=== PATIENT | female | born 1980 | race Caucasian/White ===

== ENCOUNTER 2017-09-18 18:43 | Emergency (ER) | payer OTHER ==
[~2017-09-18] VITALS: Ht 157.5 cm; Wt 74.4 kg
[~2017-09-18 18:43] MED LIST: CIPROFLOXACIN500 MG PO; DILAUDID2 MG PO; FLOMAX(MONOGRA0.4 MG PO; IBUPROFEN800 M1 PO; PERCOCET 325 MG1 TA2 PO; PERCOCET 5-3251 EACH PO; PHENERGAN25 M1 PO; ROBAFEN DM 10120 ML PO; TRIAMCINOL0.1 %/453 TOP; ZOFRAN 4 MG TABL4 MG PO; ZOFRAN ODT4 M1 SL; ZOFRAN ODT4 MG PO; [UNRECOGNIZED DRUG - OTHER] PO
[2017-09-18 19:10] VITALS: BP 135/97
--- NOTE | 2017-09-18 19:44 | ED GI/GU/ABDOMINAL COMPLAINT ---
History of Present Illness General Chief Complaint: Low Back Pain/Injury Stated Complaint: ?KIDNEY STONE Source: patient Exam Limitations: no limitations Vital Signs & Intake/Output Vital Signs & Intake/Output Vital Signs Date Time Temp Pulse Resp B/P B/P Pulse O2 O2 Flow FiO2 Mean Ox Delivery Rate 09/18 2007 97 09/18 1910 98.3 120 16 135/97 99 Room Air Room Air Allergies Coded Allergies: hydromorphone (Severe, DYSPNEA 01/03/16) amoxicillin (From Augmentin) (Intermediate, HIVES 12/08/15) clavulanic acid (From Augmentin) (Intermediate, HIVES 12/08/15) ketorolac (Intermediate, HIVES, HEADACHE 12/08/15) Penicillins (HIVES 01/03/16) adhesive tape (WELTS 01/03/16) black pepper (IF ENOUGH CONSUMED ANAPHYLAXIS, EYES AND NOSE ITCH, HIVES 01/03/16 ) codeine (HIVES 01/03/16) hydrocodone (HIVES 01/03/16) tramadol ("NASTY HEADACHE" 01/03/16) Uncoded Allergies: TIDE LAUNDRY DETERGENT (HIVES 01/03/16) Reconcile Medications Ciprofloxacin HCl (Cipro) 500 MG TABLET 1 TAB PO BID uti Ibuprofen 800 MG TABLET 1 TAB PO TID pain Ibuprofen 800 MG TABLET 1 TAB PO TID PRN headache Oxycodone HCl/Acetaminophen (Percocet 5-325 MG Tablet) 5 MG-325 MG TABLET 1-2 TAB PO BID pain Tamsulosin HCl (Flomax) 0.4 MG CAP.ER.24H 1 CAP PO DAILY kidney stone Triage Note: PT TO TRIAGE WITH LEFT FLANK PAIN TO BACK PAIN RADITATING TO HER GROIN. "IT IS THE KIDNEY STONE THAT I HAVE HAD FOR 2 YEARS." DENIES TROUBLRE WITH URINATION Triage Nurses Notes Reviewed? yes ? n Is pt currently ? No Onset: Abrupt Duration: hour(s): ( 3pm), constant Timing: recent history Quality/Severity: moderate, sharpness Location: left flank Radiation: LLQ, LUQ Activities at Onset: none Prior Abdominal Problems: none No Modifying Factors: none HPI: 36-year-old female comes into the emergency room complaints of left flank pain wrapping around her abdomen that began around 3 PM this afternoon. Pain is sharp. Continuous. Wraps around. No vomiting. History of kidney stones. Feels like previous kidney stones. Denies any other associated symptoms at this time. Past History Travel History Traveled to [place] past 21 day No Medical History Any Pertinent Medical History? see below for history Neurological: NONE EENT: NONE Cardiovascular: NONE Respiratory: asthma Gastrointestinal: fatty liver disease Renal: nephrolithiasis, KIDNEY INFECTIONS Musculoskeletal: NONE Psychiatric: depression Endocrine: NONE Blood Disorders: NONE Cancer(s): NONE GROUNDS CLEANER/Reproductive: NONE Surgical History Surgical History: appendectomy, hysterectomy, URETERAL STENTS, PARTIAL HYSTERECTOMY, TUBAL LIGATION, APPENDECTOMY Psychosocial History Who do you live with Family Services at Home None What is your primary language Telugu Tobacco Use: Current Daily Use Daily Tobacco Use Amount/Type: => 5 Cigarettes daily ETOH Use: denies use Illicit Drug Use: denies illicit drug use Family History Hx Contributory? No Review of Systems Review of Systems Constitutional: Reports: no symptoms. EENTM: Reports: no symptoms. Respiratory: Reports: no symptoms. Cardiovascular: Reports: no symptoms. GI: Reports: see HPI. Genitourinary: Reports: see HPI. Musculoskeletal: Reports: no symptoms. Skin: Reports: no symptoms. Neurological/Psychological: Reports: no symptoms. Hematologic/Endocrine: Reports: no symptoms. Immunologic/Allergic: Reports: no symptoms. All Other Systems: Reviewed and Negative Physical Exam Physical Exam General Appearance: well developed/nourished, alert, awake, mild distress Head: atraumatic, normal appearance Eyes: Bilateral: normal appearance. Ears, Nose, Throat, Mouth: hearing grossly normal, moist mucous membrane Neck: normal inspection Respiratory: normal breath sounds, no respiratory distress Cardiovascular: regular rate/rhythm Gastrointestinal: soft, tenderness Back: CVA tenderness (L) Extremities: normal range of motion Neurologic/Psych: awake, alert, oriented x 3, normal gait Core Measures ACS in differential dx? No Sepsis Present: No Sepsis Focused Exam Completed? No Progress Differential Diagnosis: appendicitis, biliary colic, bowel obstruction, cholecystitis, diverticulitis, ischemic bowel, inflamm bowel dis, kidney stone, ovarian cyst, ovarian torsion, SBO, UTI/pyelo Plan of Care: Orders Procedure Date/time Status COMPREHENSIVE METABOLIC PANEL 09/18 1941 Complete CBC WITHOUT DIFFERENTIAL 09/18 1941 Complete URINALYSIS 09/18 1909 Complete Laboratory Tests 09/18/171951: Anion Gap 14, Estimated GFR > 60, BUN/Creatinine Ratio 11.0, Glucose 109 H, Calcium 9.6, Total Bilirubin 0.3, AST 13 L, ALT 29, Alkaline Phosphatase 81, Total Protein 6.9, Albumin 4.4, Globulin 2.5, Albumin/Globulin Ratio 1.8, CBC w Diff NO MAN DIFF REQ, RBC 4.75, MCV 92.2, MCH 31.3 H, MCHC 34.0, RDW 13.3, MPV 8.7, Gran % 70.7, Lymphocytes % 20.7, Monocytes % 7.3, Eosinophils % 0.9, Basophils % 0.4, Absolute Granulocytes 11.0 H, Absolute Lymphocytes 3.2, Absolute Monocytes 1.1 H, Absolute Eosinophils 0.1, Absolute Basophils 0.1 09/18/171916: Urinalysis MANY H, Urine Color BROWN H, Urine Clarity HAZY H, Urine pH 7.0, Ur Specific [place] 1.025, Urine Protein >=300 H, Urine Ketones 15 H, Urine Nitrite POS H, Urine Bilirubin NEG, Urine Urobilinogen 2.0 H, Ur Leukocyte Esterase TRACE H, Ur Microscopic SEDIMENT EXAMINED, Urine RBC >75 H, Urine WBC 10-15 H, Ur Epithelial Cells MOD H, Urine Bacteria MOD H, Urine Hemoglobin LARGE H, Urine Glucose NEG Diagnostic Imaging: Viewed by Me: CT Scan. Discussed w/RAD: CT Scan. Radiology Impression: PATIENT: ROSARIO FLETCHER PRESENT AGE: 36 PATIENT ACCOUNT NO: [id number] : 79 LOCATION: [facility] ORDERING PHYSICIAN: Skyler BOSS SERVICE DATE: 09/18/17 EXAM TYPE: CAT - CT ABD & PELVIS W/O IV CONTRAS EXAMINATION: CT ABDOMEN AND PELVIS WITHOUT CONTRAST CLINICAL INFORMATION: Left flank pain. COMPARISON: CT scan abdomen pelvis 12/08/2015. Ultrasound abdomen 02/16/2018 TECHNIQUE: Multidetector volumetric imaging was performed from the superior aspect of the liver through the pubic symphysis. Sagittal and coronal reformatted images were obtained on the technologist's workstation. DLP: 496.11 mGy-cm FINDINGS: LUNG BASES: The visualized lung bases are unremarkable. LIVER, GALLBLADDER, AND BILIARY TREE: The liver is normal in size, shape, and attenuation. No focal hepatic lesion or biliary ductal dilatation is present. There are a few tiny densities layering dependently in the gallbladder likely from small gallstones. No edema around the gallbladder. No bile duct dilatation. PANCREAS: Unremarkable. SPLEEN: Unremarkable. ADRENAL GLANDS: Unremarkable. BLADDER/KIDNEYS AND URETERS: Moderate hydronephrosis of left kidney with distention of renal pelvis calyces and the left ureter to the ureterovesical junction. No stone is seen in the kidney or ureter. The 2 calcifications, one on image 609 (3) and the other on image 639, are not within the ureter, there are phleboliths or vascular calcifications. These were both present on the CAT scan of 04/08/2016. The etiology for the hydronephrosis is uncertain. There is no bladder calculus. Right kidney and ureter are normal. There are 3 less than 1 mm size stones in the left kidney. No stone in the right kidney. GASTROINTESTINAL TRACT: Status post appendectomy with surgical clips adjacent to the cecum. No acute change of the bowel. No bowel obstruction. No bowel wall thickening or edema. Large volume of stool in the colon. ABDOMINAL WALL: No significant hernia is appreciated. LYMPH NODES: Normal. VASCULAR: Unremarkable. PELVIC VISCERA: Uterus is absent. No adnexal abnormality. OSSEOUS STRUCTURES: Unremarkable. IMPRESSION: 1. Hydronephrosis of left kidney with hydroureter to the ureterovesical junction. There are several nonobstructive stones in the left kidney. No stone identified in the left ureter or bladder. 2. Cholelithiasis. No bile duct dilatation. DICTATED BY: Orlando Gardiner MD DATE/TIME DICTATED:09/18/172047 WORK FORCE ADVISOR :CONNOR DATE/TIME TRANSCRIBED:09/18/172047 CONFIDENTIAL, DO NOT COPY WITHOUT APPROPRIATE AUTHORIZATION. <Electronically signed in Other Vendor System> SIGNED BY: Orlando Gardiner MD 09/18/172100 Initial ED EKG: none Departure Departure Disposition: HOME OR SELF CARE Condition: Stable Clinical Impression Primary Impression: Kidney stones Referrals: Unknown (PCP/Family) Additional Instructions: Take Percocet and Flomax as prescribed. Take ibuprofen as prescribed. Follow- up with urologist. Return if any other concerns. Please go over all results of today's visit with your primary care doctor. Contact your primary care doctor to let them know you were here in the emergency room. There may be nonspecific findings which may not be related to your visit today here in the emergency room but may require further evaluation and chronic monitoring by your primary care doctor. If you had a laceration today the chance of foreign body always remains. You should follow-up with your primary care doctor for recheck in 3-5 days for a wound check. If you had an x-ray done there is a chance that a fracture could have been missed on initial read and you should follow-up with your primary care doctor for repeat x-rays if symptoms persist. If your blood pressure was elevated here in the emergency room please have rechecked by erin primary care doctor within the next 48. If you were prescribed a narcotic here in the emergency room or any type of controlled substances you're not allowed to drive while taking this medication or operate any type of heavy machinery. Narcotics can make you feel lightheaded dizziness nausea and can cause constipation. You may need to picker machine operator a stool softener. Thank you for choosing [facility] emergency room. Please return to the emergency room immediately if you have any other concerns worsening of symptoms. Departure Forms: Customer Survey General Discharge Information Prescriptions: Current Visit Scripts Oxycodone HCl/Acetaminophen (Percocet 5-325 MG Tablet) 1-2 TAB PO BID #10 TAB Tamsulosin HCl (Flomax) 1 CAP PO DAILY #7 CAP Ibuprofen 1 TAB PO TID #30 TAB Ciprofloxacin HCl (Cipro) 1 TAB PO BID #6 TAB Comments 09/18/2017 9:32:08 PM Patient clinically looks well. Patient is no apparent distress. Patient is nontoxic-appearing. Pain is controlled with IV medication. She feels better. Follow-up with urologist. She already has a urologist. Return if any other concerns. Patient understands and agrees a plan of care. Reevaluated multiple times.
[2017-09-18 20:07] LABS: ABSOLUTE BASOPHIL COUNT 0.1 /CUMM (0.0-0.2); ABSOLUTE EOSINOPHIL COUNT 0.1 /CUMM (0.0-0.7); ABSOLUTE LYMPH COUNT 3.2 /CUMM (1.2-3.4); ABSOLUTE MONOCYTE COUNT 1.1 /CUMM (0.10-0.60); BASOPHIL % 0.4 % (0.0-2.0); EOSINOPHIL % 0.9 % (0-5); GRANULOCYTE % 70.7 % (42.2-75.2); HEMATOCRIT 43.8 % (37-47); MEAN CORPUSCULAR HGB 31.3 PG (27.0-31.0); MEAN CORPUSCULAR VOLUME 92.2 FL (81.0-99.0); MEAN PLATELET VOLUME 8.7 FL (7.4-10.4); PLATELET COUNT 308 /CUMM (130-400); RBC DISTRIBUTION WIDTH 13.3 % (11.5-14.5); RED BLOOD CELL CT 4.75 /CUMM (4.20-5.40); WHITE BLOOD CELL COUNT 15.5 /CUMM (4.8-10.8)
--- NOTE | 2017-09-18 21:01 | CT SCAN REPORT ---
EXAMINATION: CT ABDOMEN AND PELVIS WITHOUT CONTRAST CLINICAL INFORMATION: Left flank pain. COMPARISON: CT scan abdomen pelvis 12/08/2015. Ultrasound abdomen 02/16/2018 TECHNIQUE: Multidetector volumetric imaging was performed from the superior aspect of the liver through the pubic symphysis. Sagittal and coronal reformatted images were obtained on the technologist's workstation. DLP: 496.11 mGy-cm FINDINGS: LUNG BASES: The visualized lung bases are unremarkable. LIVER, GALLBLADDER, AND BILIARY TREE: The liver is normal in size, shape, and attenuation. No focal hepatic lesion or biliary ductal dilatation is present. There are a few tiny densities layering dependently in the gallbladder likely from small gallstones. No edema around the gallbladder. No bile duct dilatation. PANCREAS: Unremarkable. SPLEEN: Unremarkable. ADRENAL GLANDS: Unremarkable. BLADDER/KIDNEYS AND URETERS: Moderate hydronephrosis of left kidney with distention of renal pelvis calyces and the left ureter to the ureterovesical junction. No stone is seen in the kidney or ureter. The 2 calcifications, one on image 609 (3) and the other on image 639, are not within the ureter, there are phleboliths or vascular calcifications. These were both present on the CAT scan of 04/08/2016. The etiology for the hydronephrosis is uncertain. There is no bladder calculus. Right kidney and ureter are normal. There are 3 less than 1 mm size stones in the left kidney. No stone in the right kidney. GASTROINTESTINAL TRACT: Status post appendectomy with surgical clips adjacent to the cecum. No acute change of the bowel. No bowel obstruction. No bowel wall thickening or edema. Large volume of stool in the colon. ABDOMINAL WALL: No significant hernia is appreciated. LYMPH NODES: Normal. VASCULAR: Unremarkable. PELVIC VISCERA: Uterus is absent. No adnexal abnormality. OSSEOUS STRUCTURES: Unremarkable. IMPRESSION: 1. Hydronephrosis of left kidney with hydroureter to the ureterovesical junction. There are several nonobstructive stones in the left kidney. No stone identified in the left ureter or bladder. 2. Cholelithiasis. No bile duct dilatation.
[2017-09-18] MEDS ORDERED: CIPRO500 M1 PO (21:14)
[2017-09-18] MEDS ORDERED: PERCOCET 5-3251 EACH PO (21:14)
[2017-09-18] MEDS ORDERED: IBUPROFEN800 M1 PO (21:14)
[2017-09-18] MEDS ORDERED: FLOMAX0.4 M1 PO (21:14)
== END 2017-09-18 21:37 ==
LOC: ERH 18:43
PROVIDERS: Physician Assistant Medical
DX: N20.0 Calculus of kidney (principal)
CPT/HCPCS: 74176; 81001; 96361; 96374; 96375; J1885